=== PATIENT | female | born 1965 | race Caucasian/White ===

== ENCOUNTER 2023-06-03 08:31 | Day surgery (SDC) | payer BC ==
[2023-05-24 14:16] VITALS: BMI 25.0
[2023-06-03 08:53] VITALS: TEMP 97.4
[2023-06-03 10:52] VITALS: RESP 18
[2023-06-03 11:01] VITALS: BP 112/56; PULSE 77
== END 2023-06-03 11:05 | disposition home or self-care (01) ==
LOC: FASU-ENDO 08:31
PROVIDERS: ATTEND Internal Medicine Gastroenterology
PROC: 0DJD8ZZ Inspection of Lower Intestinal Tract, Via Natural or Artificial Opening Endoscopic (ICD-10-PCS; principal; 2023-06-03 10:14)
DX: Z12.11 Encounter for screening for malignant neoplasm of colon (principal); K57.30 Diverticulosis of large intestine without perforation or abscess without bleeding